=== PATIENT | male | born 1955 | race Caucasian/White ===

== ENCOUNTER 2020-03-31 14:51 | Outpatient (REF) | payer BC, SELFPAY ==
[2020-03-31 21:41] LABS: ALT 27 U/L (16-63); AST 24 U/L (15-37); Alkaline Phosphatase 94 U/L (46-116); Anion Gap 8.7 mmol/L (3-11); BUN 17 mg/dL (7-18); Bilirubin, Total 1.5 mg/dL (0.2-1.0); CO2 25.3 mmol/L (21.0-32.0); CREATININE 0.84 mg/dL (0.70-1.30); Calcium 9.3 mg/dL (8.5-10.1); Calculated LDL 147 mg/dL (<100); Chloride 104 mmol/L (98-107); Cholesterol 222 mg/dL (<200); Glucose 92 mg/dL (74-106); HDL Cholesterol 51 mg/dL (40-60); Potassium 4.5 mmol/L (3.5-5.1); Sodium 138 mmol/L (136-145); Total Protein 7.1 g/dL (6.4-8.2); Triglyceride 121 mg/dL (<150)
== END 2020-03-31 15:11 ==
LOC: NCHCN 14:51
PROVIDERS: PCP Internal Medicine; Visit Provider Internal Medicine
DX: R03.0 Elevated blood-pressure reading, without diagnosis of hypertension (principal); E78.5 Hyperlipidemia, unspecified
CPT/HCPCS: 80053; 80061

== ENCOUNTER 2024-01-01 18:13 | Outpatient (REF) | payer BC, SELFPAY ==
[2024-01-01 21:01] LABS: ALT 31 U/L (16-63); AST 17 U/L (15-37); Albumin 3.9 g/dL (3.4-5.0); Alkaline Phosphatase 92 U/L (46-116); BUN 23 mg/dL (7-18); Bilirubin, Total 1.9 mg/dL (0.2-1.0); CREATININE 0.8 mg/dL (0.70-1.30); Calcium 9.2 mg/dL (8.5-10.1); Calculated LDL 164 mg/dL (<100); Chloride 104 mmol/L (98-107); Cholesterol 246 mg/dL (<200); Estimated GFR 95.21 (mL/min/1.73m2); Glucose 96 mg/dL (74-106); HDL Cholesterol 65 mg/dL (40-60); Hemoglobin A1C 5.8 % (<5.7); Potassium 3.9 mmol/L (3.5-5.1); Sodium 141 mmol/L (136-145); Total Protein 7.4 g/dL (6.4-8.2); Triglyceride 87 mg/dL (<150)
== END 2024-01-01 18:14 | disposition home or self-care (01) ==
LOC: NCHCN 18:13
PROVIDERS: PCP Internal Medicine; Visit Provider Family Medicine
DX: Z13.220 Encounter for screening for lipoid disorders (principal); I10 Essential (primary) hypertension
CPT/HCPCS: 80053; 80061; 83036

== ENCOUNTER 2024-03-12 13:37 | Outpatient (REF) | payer BC, SELFPAY ==
--- NOTE | 2024-03-12 10:50 | SKI_PTH ---
PATIENT: Juan J Fuentes LOC: [facility] U#:[id number] AGE/SX: 69/M ROOM: RE03/12/[address]: James Betancourt DO : 1955 BED: DIS: 03/12/2024 SPEC #: [id number] RECD: 03/12/24 16:32 STATUS: BOBO REQ #: [id number] LAM: 03/12/24 10:[address]: James Betancourt DEPT: Surgical Specimen RECD BY: Dalia Pruitt Tissues: 1 - SKIN BIOPSY(SHAVE/PUNCH) 2 - SKIN BIOPSY(SHAVE/PUNCH) 3 - SKIN BIOPSY(SHAVE/PUNCH) Procedures: SKIN LEVEL 4 Comments: [id number]
== END 2024-03-12 13:38 | disposition home or self-care (01) ==
LOC: LBN 13:37
PROVIDERS: PCP Family Medicine; Visit Provider Otolaryngology Otolaryngology/Facial Plastic Surgery
DX: D22.61 Melanocytic nevi of right upper limb, including shoulder (principal); L82.1 Other seborrheic keratosis
CPT/HCPCS: 88305

== ENCOUNTER 2025-05-25 17:22 | Outpatient (REF) | payer BC, SELFPAY ==
[2025-05-25 21:33] LABS: ALT 25 U/L (16-63); AST 20 U/L (15-37); Albumin 3.7 g/dL (3.4-5.0); Alkaline Phosphatase 97 U/L (46-116); Anion Gap 5.8 mmol/L (3-11); BUN 23 mg/dL (7-18); Bilirubin, Total 1.4 mg/dL (0.2-1.0); CO2 30.2 mmol/L (21.0-32.0); Calcium 9.1 mg/dL (8.5-10.1); Calculated LDL 142 mg/dL (<100); Chloride 105 mmol/L (98-107); Cholesterol 207 mg/dL (<200); Estimated GFR 94.03 (mL/min/1.73m2); Glucose 105 mg/dL (74-106); HDL Cholesterol 56 mg/dL (>or=40); Potassium 5.4 mmol/L (3.5-5.1); Sodium 141 mmol/L (136-145); Total Protein 7.3 g/dL (6.4-8.2); Triglyceride 47 mg/dL (<150)
[2025-05-25 21:35] LABS: Hemoglobin A1C 5.7 % (<5.7)
== END 2025-05-25 17:23 | disposition home or self-care (01) ==
LOC: NCHCN 17:22
PROVIDERS: PCP Family Medicine; Visit Provider Family Medicine
DX: I10 Essential (primary) hypertension (principal); Z13.220 Encounter for screening for lipoid disorders; R73.03 Prediabetes
CPT/HCPCS: 80053; 80061; 83036